=== PATIENT | female | born 1960 | race Caucasian/White ===

== ENCOUNTER → 2016-10-17 16:51 | Outpatient (CLI) | payer BC ==
[2011-11-18 17:52] VITALS: BMI 22.5
[2016-10-17 09:59] LABS: BASOPHILS 0.7 % (0.0-2.0); EOSINOPHILS 3.1 % (0-7); HEMATOCRIT 37.7 % (36.0-48.0); HEMOGLOBIN 12.7 g/dL (12-16); MCHC 33.7 g/dL (31.0-37.0); MEAN PLATELET VOLUME 9.4 fL (7.4-10.4); MONOCYTES 11.4 % (2-11); NEUTROPHILS 49.8 % (40-80); RDW 12.6 % (11.5-14.5); WBC 4.2 10x3/uL (4.8-10.8)
[2016-10-17 10:03] LABS: PLATELET COUNT 146 10x3/uL (130-400)
[2016-10-17 10:29] LABS: ANION GAP 7.7 mmol/L (8-16); BILIRUBIN - TOTAL 0.74 mg/dL (0.2-1.3); CALCIUM 9.2 mg/dL (8.5-10.1); CARBON DIOXIDE 32.6 mmol/L (21.0-32.0); CHOL - HDL RATIO 3.2 ratio (2.3-4.1); LDL-HDL RATIO 1.9 ratio (1.5-3.5); POTASSIUM - SERUM 4.3 mmol/L (3.5-5.1); PROTEIN - SERUM 7.3 g/dL (6.4-8.2); THYROID STIMULATING HORMONE 1.03 uIU/mL (0.36-3.74)
== END | disposition home or self-care (01) ==
LOC: D.MAMMO 09:15
PROVIDERS: Family Medicine
DX: Z12.31 Encounter for screening mammogram for malignant neoplasm of breast (principal); M19.90 Unspecified osteoarthritis, unspecified site; N95.9 Unspecified menopausal and perimenopausal disorder; E78.00 Pure hypercholesterolemia, unspecified; Z00.01 Encounter for general adult medical examination with abnormal findings

== ENCOUNTER 2018-07-20 08:00 | Outpatient (CLI) | payer BC ==
[2011-11-18 17:52] VITALS: BMI 22.5
== END 2018-07-20 09:00 | disposition home or self-care (01) ==
LOC: D.MAMMO 08:00
DX: Z12.31 Encounter for screening mammogram for malignant neoplasm of breast (principal)

== ENCOUNTER → 2018-08-06 10:09 | Outpatient (CLI) | payer BC ==
[2011-11-18 17:52] VITALS: BMI 22.5
[2018-08-06 11:14] LABS: BASOPHILS 0.6 % (0-2); HEMATOCRIT 35.3 % (36.0-48.0); HEMOGLOBIN 11.6 g/dL (12-16); LYMPHOCYTES 22.5 % (15-50); MCHC 32.9 g/dL (31.0-37.0); MCV 85.1 fL (80.0-100.0); MONOCYTES 13.7 % (2-11); NEUTROPHILS 59.2 % (40-80); PLATELET COUNT 168 10x3/uL (130-400); RBC 4.15 10x6/uL (4.00-5.40); RDW 14.3 % (11.5-14.5); WBC 3.3 10x3/uL (4.8-10.8)
[2018-08-06 11:28] LABS: ALBUMIN 3.8 g/dL (3.4-5.0); BILIRUBIN - TOTAL 0.37 mg/dL (0.2-1.3); CALCIUM 9.2 mg/dL (8.5-10.1); CARBON DIOXIDE 28.7 mmol/L (21.0-32.0); CREATININE - SERUM 0.9 mg/dL (0.6-1.3); POTASSIUM - SERUM 4.7 mmol/L (3.5-5.1); PROTEIN - SERUM 7.1 g/dL (6.4-8.2)
== END | disposition home or self-care (01) ==
LOC: D.LAB 10:09
PROVIDERS: Internal Medicine Gastroenterology
DX: K51.90 Ulcerative colitis, unspecified, without complications (principal)

== ENCOUNTER → 2018-08-20 16:57 | Outpatient (CLI) | payer BC ==
[2011-11-18 17:52] VITALS: BMI 22.5
== END | disposition home or self-care (01) ==
LOC: D.MAMMO 13:30
DX: R92.8 Other abnormal and inconclusive findings on diagnostic imaging of breast (principal)

== ENCOUNTER → 2018-08-28 10:33 | Outpatient (CLI) | payer BC ==
[2011-11-18 17:52] VITALS: BMI 22.5
[2018-08-28 11:19] LABS: BASOPHILS 1.1 % (0-2); EOSINOPHILS 8.9 % (0-7); HEMATOCRIT 34.9 % (36.0-48.0); HEMOGLOBIN 11.8 g/dL (12-16); IMMATURE GRANULOCYTES 0.3 % (0-5); LYMPHOCYTES 27.4 % (15-50); MCH 28.5 pg (26.0-34.0); MCHC 33.8 g/dL (31.0-37.0); MCV 84.3 fL (80.0-100.0); MEAN PLATELET VOLUME 9.5 fL (7.4-10.4); MONOCYTES 11.4 % (2-11); NEUTROPHILS 50.9 % (40-80); PLATELET COUNT 198 10x3/uL (130-400); RBC 4.14 10x6/uL (4.00-5.40); RDW 13.9 % (11.5-14.5); WBC 3.5 10x3/uL (4.8-10.8)
[2018-08-28 11:38] LABS: % SATURATION 19 % (15-55); IRON 48 ug/dl (35-150); TOTAL IRON BIND CAPACITY 251 ug/dl (260-445); UNSAT IRON BIND CAPACITY 203 ug/dl (150-375)
[2018-08-28 11:41] LABS: ALBUMIN 3.7 g/dL (3.4-5.0); ANION GAP 12.5 mmol/L (8-16); BILIRUBIN - TOTAL 0.27 mg/dL (0.2-1.3); CALCIUM 8.8 mg/dL (8.5-10.1); CARBON DIOXIDE 25.9 mmol/L (21.0-32.0); CREATININE - SERUM 0.9 mg/dL (0.6-1.3); POTASSIUM - SERUM 4.4 mmol/L (3.5-5.1); PROTEIN - SERUM 7.1 g/dL (6.4-8.2)
== END | disposition home or self-care (01) ==
LOC: D.LAB 10:33
PROVIDERS: Internal Medicine Gastroenterology
DX: K51.90 Ulcerative colitis, unspecified, without complications (principal); D64.9 Anemia, unspecified